=== PATIENT | female | born 2000 | race Caucasian/White ===

== ENCOUNTER → 2023-09-27 08:17 | Outpatient (CLI) | payer OTHER, SELFPAY ==
--- NOTE | ~2023-09-27 | US_ITS ---
US right upper quadrant DATE: 09/27/2023 08:56 INDICATION: Right upper quadrant abdominal pain for past year, increasing over the last couple of wee ks TECHNIQUE: Real-time imaging and Doppler analysis of the liver, pancreas, gallbladder COMPARISON: None FINDINGS: The pancreas is not well demonstrated due to overlying bowel gas. No hepatic space-occupying mass lesion is detected. Normal hepatopedal portal venous flow. No gallstones or gallbladder wall thickening or abnormal pericholecystic fluid. Negative sonographic Mansfield's sign. The common bile duct measures 4 mm, normal. IMPRESSION: Suboptimal evaluation of the pancreas due to overlying bowel gas; otherwise negative Reviewed, dictated and finalized at [facility]. Reviewed, dictated and finalized at [facility] [employer] IMPRESSION: Suboptimal evaluation of the pancreas due to overlying bowel gas; o therwise negative
== END ==
PROVIDERS: PCP Registered Nurse; Visit Provider Registered Nurse
DX: R10.11 Right upper quadrant pain (principal)
CPT/HCPCS: 76705